=== PATIENT | female | born 1985 | race Caucasian/White ===

== ENCOUNTER 2023-04-29 12:27 | Inpatient (IN) | payer OTHER ==
--- NOTE | 2023-04-29 13:03 | ED ---
Back Pain HPI - General Source: patient, RN notes reviewed Mode of arrival: ambulatory Limitations: no limitations - History of Present Illness Complaint: back pain <Breann Odonnell - Last Filed: 04/29/23 13:00> - History of Present Illness Complaint: back pain <Ramila Krause - Last Filed: 04/29/23 16:23> - General Source: RN notes reviewed, old records reviewed Mode of arrival: ambulatory Limitations: no limitations <Dipak Rubalcava - Last Filed: 05/01/23 18:15> - General Chief Complaint: Back Pain/Injury Stated Complaint: mouth pain and back/stomach right pain Time Seen by Provider: 04/29/23 13:00 - History of Present Illness Initial Comments: This is a 38 year old female who presents to the emergency department for right flank pain and dental pain. Reports 1.5 weeks of right flank pain. States that she has a hx of UTIs and kidney stones and believes that the pain feels the same. Also reports left sided dental pain and swelling beginning 2 days ago. She has been taking Ibuprofen which is helpful. (Breann Odonnell) The patient is a 38-year-old female with a history of diabetes and open heart surgery which she had originally been on Coumadin for presents emergency room with complaints of pain and swelling to the left upper incisor. She states it started a few days ago and is getting progressively worse. The patient also states she has bilateral flank pain that is worse on the right. She has discolored urine and very foul-smelling urine. She has a history urinary tract infections, kidney infections and kidney stones. Patient denies any fever. She denies any vomiting. Of note she patient states she has been off her diabetes medication which includes 4 men and an unknown diabetic medication as well as Coumadin. She states she has been off these medications for 3 months. (Ramila Krause) This is a 38-year-old female to the emergency department for evaluation of severe abdominal pain. Originally came to the ER for evaluation today regarding tooth pain and tooth abscess but also noted to have flank pain. No fevers. Mild nausea no vomiting (Dipak Rubalcava) - Related Data Home Medications Medication Instructions Recorded Confirmed No Known Home Medications 04/29/23 04/29/23 Allergies Allergy/AdvReac Type Severity Reaction Status Date / Time No Known Allergies Allergy Verified 04/29/23 19:40 Review of Systems ROS Other: All systems not noted in ROS Statement are negative. <Breann Odonnell - Last Filed: 04/29/23 13:00> ROS Other: All systems not noted in ROS Statement are negative. <Ramila Krause - Last Filed: 04/29/23 16:23> ROS Other: All systems not noted in ROS Statement are negative. <Dipak Rubalcava - Last Filed: 05/01/23 18:15> ROS Statement: Those systems with pertinent positive or pertinent negative responses have been documented in the HPI. General Exam <Breann Odonnell - Last Filed: 04/29/23 13:00> Limitations: no limitations General appearance: alert, in no apparent distress Head exam: Present: atraumatic, normocephalic, normal inspection Eye exam: Present: normal appearance ENT exam: Present: other (Were old dental DKA throughout. Patient has a large 1 cm abscess that is well defined in the left upper apical gum.) Neck exam: Present: normal inspection Respiratory exam: Present: normal lung sounds bilaterally Cardiovascular Exam: Present: regular rate, normal rhythm GI/Abdominal exam: Present: soft, other (Bilateral flank pain no rash) Extremities exam: Present: full ROM, other (EHL intact bilaterally no hemo tympanum with steady gait) Back exam: Present: full ROM, CVA tenderness (R), CVA tenderness (L) Neurological exam: Present: alert, oriented X3, CN II-XII intact Psychiatric exam: Present: normal affect, normal mood Skin exam: Present: warm, dry <Ramila Krause - Last Filed: 04/29/23 16:23> General appearance: alert, in no apparent distress Head exam: Present: atraumatic, normocephalic, normal inspection Eye exam: Present: normal appearance, PERRL, EOMI. Absent: scleral icterus, conjunctival injection, periorbital swelling ENT exam: Present: normal exam, mucous membranes moist Neck exam: Present: normal inspection. Absent: tenderness, meningismus, lym phadenopathy Respiratory exam: Present: normal lung sounds bilaterally. Absent: respiratory distress, wheezes, rales, rhonchi, stridor Cardiovascular Exam: Present: regular rate, normal rhythm, normal heart sounds. Absent: systolic murmur, diastolic murmur, rubs, gallop, clicks GI/Abdominal exam: Present: soft, normal bowel sounds. Absent: distended, tenderness, guarding, rebound, rigid Extremities exam: Present: normal inspection, full ROM, normal capillary refill. Absent: tenderness, pedal edema, joint swelling, calf tenderness Back exam: Present: normal inspection Neurological exam: Present: alert, oriented X3, CN II-XII intact Psychiatric exam: Present: normal affect, normal mood Skin exam: Present: warm, dry, intact, normal color. Absent: rash <Dipak Rubalcava - Last Filed: 05/01/23 18:15> - General Exam Comments Initial Comments: Visual Physical Exam Vital signs reviewed General: Well-appearing, nontoxic, no acute distress. Head: Normocephalic, atraumatic Eyes: PERRLA, EOMI ENT: Airway patent Chest: Nonlabored breathing Skin: No visual rash, normal skin tone Neuro: Alert and oriented 3 Musculoskeletal: No gross abnormalities I performed a quick note portion of this chart signed Breann Odonnell PA-C (Breann Odonnell) Course <Ramila Krause - Last Filed: 04/29/23 16:23> <Dipak Rubalcava - Last Filed: 05/01/23 18:15> Vital Signs 04/29/23 04/29/23 13:00 20:07 Temperature 97.7 F Pulse Rate 100 82 Respiratory 20 16 Rate Blood Pressure 141/94 138/92 O2 Sat by Pulse 98 97 Oximetry - Reevaluation(s) Reevaluation #1: 04/29/23 16:26 Patient care will be transferred to Dr. Rubalcava at this time. Patient will not let me drained the dental abscess. She was started on Unasyn to cover for the dental abscess as well as the suspected pyelonephritis. (Ramila Krause) Reevaluation #2: 04/29/23 22:23 Patient symptoms are dramatically improved (Dipak Rubalcava) Reevaluation #3: 04/29/23 22:23 Patient informed of results (Dipak Rubalcava) Reevaluation #4: 04/29/23 22:23 Was pt. sent in by a medical professional or institution (KANDY Stevenson, MANAGER OF TRANSPORTATION, urgent care, hospital, or [place]...) When possible be specific @ -no Did you speak to anyone other than the patient for history (EMS, parent, family, police, friend...)? What history was obtained from this source @ -no Did you review nursing and triage notes (agree or disagree)? Why? @ -agree Are old charts reviewed (outside hosp., previous admission, EMS record, old EKG, old radiological studies, urgent care reports/EKG's, [place] [facility] [place] records)? Report findings @ -yes Differential Diagnosis (chest pain, altered mental status, abdominal pain women, abdominal pain men, vaginal bleeding, weakness, fever, dyspnea, syncope, headac he, dizziness, GI bleed, back pain, seizure, CVA, palpatations, mental health, musculoskeletal)? @ -prior EKG interpreted by me (3pts min.). @ -no X-rays interpreted by me (1pt min.). @ -no CT interpreted by me (1pt min.). @ -yes U/S interpreted by me (1pt. min.). @ -yes What testing was considered but not performed or refused? (CT, X-rays, U/S, labs)? Why? @ -none What meds were considered but not given or refused? Why? @ -none Did you discuss the management of the patient with other professionals (professionals i.e. KANDY Stevenson, MANAGER OF TRANSPORTATION, lab, RT, psych nurse, medical social consultant, natural gas trader, teacher, chief commercial officer, mattress spring encaser)? Give summary @ -no Was smoking cessation discussed for >3mins.? @ -no Was critical care preformed (if so, how long)? @ -no Were there social determinants of health that impacted care today? How? (Homelessness, low income, unemployed, alcoholism, drug addiction, trans portation, low edu. Level, literacy, decrease access to med. care, group home, rehab)? @ -none Was there de-escalation of care discussed even if they declined (Discuss DNR or withdrawal of care, Hospice)? DNR status @ -no What co-morbidities impacted this encounter? (DM, HTN, Smoking, COPD, CAD, Cancer, CVA, ARF, Chemo, Hep., AIDS, mental health diagnosis, sleep apnea, morbid obesity)? @ -none Was patient admitted / discharged? Hospital course, mention meds given and route, prescriptions, significant lab abnormalities, going to OR and other pertinent info. @ - 38 female to the emergency department with kidney stone and staghorn calculi. Patient will be admitted for urology consult and treatment, IV antibiotics Admitted Undiagnosed new problem with uncertain prognosis? @ -no Drug Therapy requiring intensive monitoring for toxicity (Heparin, Nitro, Insulin, Cardizem)? @ -no Were any procedures done? @ -no Diagnosis/symptom? @ -Staghorn calculi, UTI, tooth abscess Acute, or Chronic, or Acute on Chronic? @ -Acute Uncomplicated (without systemic symptoms) or Complicated (systemic symptoms)? @ -Complicated Side effects of treatment? @ -no Exacerbation, Progression, or Severe Exacerbation? @ -exacerbation Poses a threat to life or bodily function? How? (Chest pain, USA, DE, pneumonia, PE, COPD, DKA, ARF, appy, cholecystitis, CVA, Diverticulitis, Homicidal, Suicidal, threat to staff... and all critical care pts) @ -yes kidney stone with infection (Dipak Rubalcava) Reevaluation #5: 04/29/23 22:24 Differential Abdominal Pain Women: Appendicitis, Cholecystitis, diverticulosis, ischemic bowel, pancreatitis, hepat itis, UTI, gastroenteritis, AAA, incarcerated hernia, bowel obstruction, constipation, inflammatory bowel, hepatitis, peptic ulcer disease, splenic infarction, perforated viscus, vulvitis, ovarian torsion, PID, kidney stone, placenta abruption, this is not meant to be an all-inclusive list (Dipak Rubalcava) - Consultations Consultation #1: Spoke with sound who agrees to admit this patient (Dipak Rubalcava) Consultation #2: With urology patient (Dipak Rubalcava) Medical Decision Making - Lab Data Result diagrams: 04/29/23 14:11 04/29/23 14:11 <Ramila Krause - Last Filed: 04/29/23 16:23> - Lab Data Result diagrams: 05/01/23 05:41 05/01/23 05:41 - Radiology Data Radiology results: report reviewed (CT of the abdomen and pelvis positive for staghorn calculi, ultrasound gallbladder negative for acute disease), image reviewed <KhadarFrannati Barlow - Last Filed: 05/01/23 18:15> - Medical Decision Making Was pt. sent in by a medical professional or institution (KADNY Stevenson, MANAGER OF TRANSPORTATION, urgent care, hospital, or [place]...) When possible be specific @ -[No] Did you speak to anyone other than the patient for history (EMS, parent, family, police, friend...)? What history was obtained from this source @ -[No] Did you review nursing and triage notes (agree or disagree)? Why? @ -[I reviewed and agree with nursing and triage notes] Were old charts reviewed (outside hosp., previous admission, EMS record, old EKG, old radiological studies, urgent care reports/EKG's, [place] records)? Report findings @ -[No old charts were reviewed] Differential Diagnosis (chest pain, altered mental status, abdominal pain women, abdominal pain men, vaginal bleeding, weakness, fever, dyspnea, syncope, headache, dizziness, GI bleed, back pain, seizure, CVA, palpatations, mental health, musculoskeletal)? @ -Dental abscess, dental decay, muscle strain, urinary tract infection, pyelonephritis, kidney stone EKG interpreted by me (3pts min.). @ -[As above] X-rays interpreted by me (1pt min.). @ -[None done] CT interpreted by me (1pt min.). @ -CT is still pending no interpretation by me. U/S interpreted by me (1pt. min.). @ -[None done] What testing was considered but not performed or refused? (CT, X-rays, U/S, labs)? Why? @ -[None] What meds were considered but not given or refused? Why? @ -[None] Did you discuss the management of the patient with other professionals (professionals i.e. KANDY Stevenson, MANAGER OF TRANSPORTATION, lab, RT, psych nurse, medical social consultant, natural gas trader, teacher, chief commercial officer, mattress spring encaser)? Give summary @ -Discussed patient's symptoms are And evaluation with attending ED physician Dr. Rubalcava today. Patient care will be transferred to him for follow-up of the CT and further disposition Was smoking cessation discussed for >3mins.? @ -[No] Was critical care preformed (if so, how long)? @ -[No] Were there social determinants of health that impacted care today? How? (Homel essness, low income, unemployed, alcoholism, drug addiction, transportation, low edu. Level, literacy, decrease access to med. care, group home, rehab)? @ -[No] Was there de-escalation of care discussed even if they declined (Discuss DNR or withdrawal of care, Hospice)? DNR status @ -[No] What co-morbidities impacted this encounter? (DM, HTN, Smoking, COPD, CAD, Cancer, CVA, ARF, Chemo, Hep., AIDS, mental health diagnosis, sleep apnea, morbid obesity)? @ -[None] Was patient admitted / discharged? Hospital course, mention meds given and route, prescriptions, significant lab abnormalities, going to OR and other pertinent info. @ - Patient care transferred to Dr. Rubalcava for disposition and admission plan Undiagnosed new problem with uncertain prognosis? @ -[No] Drug Therapy requiring intensive monitoring for toxicity (Heparin, Nitro, Insulin, Cardizem)? @ -[No] Were any procedures done? @ -[No] Diagnosis/symptom? @ -[Dental abscess, flank pain, pyelonephritis. hyperglycemia ] Acute, or Chronic, or Acute on Chronic? @ -[Acute ] Uncomplicated (without systemic symptoms) or Complicated (systemic symptoms)? @ -[Uncomplicated Side effects of treatment? @ -[No] Exacerbation, Progression, or Severe Exacerbation? @ -[No] Poses a threat to life or bodily function? How? (Chest pain, USA, DE, pneumonia, PE, COPD, DKA, ARF, appy, cholecystitis, CVA, Diverticulitis, Homicidal, Suicidal, threat to staff... and all critical care pts) @ -[No] (Ramila Krause) 38 female to the emergency department with kidney stone and staghorn calculi. Patient [place] for urology consult (Dipak Rubalcava) - Lab Data Lab Results 04/29/23 04/29/23 04/29/23 Range/Units 13:01 14:11 14:11 WBC 12.4 H (3.8-10.6) k/uL RBC 5.36 (3.80-5.40) m/uL Hgb 15.8 (11.4-16.0) gm/dL Hct 46.8 H (34.0-46.0) % MCV 87.3 (80.0-100.0) fL MCH 29.5 (25.0-35.0) pg MCHC 33.8 (31.0-37.0) g/dL RDW 14.4 (11.5-15.5) % Plt Count 271 (150-450) k/uL MPV 8.2 Neutrophils % 66 % Lymphocytes % 20 % Monocytes % 8 % Eosinophils % 3 % Basophils % 1 % Neutrophils # 8.2 H (1.3-7.7) k/uL Lymphocytes # 2.5 (1.0-4.8) k/uL Monocytes # 1.0 (0-1.0) k/uL Eosinophils # 0.4 (0-0.7) k/uL Basophils # 0.1 (0-0.2) k/uL PT (10.0-12.5) sec INR (<1.2) Sodium 138 (137-145) mmol/L Potassium 4.0 (3.5-5.1) mmol/L Chloride 104 (98-107) mmol/L Carbon Dioxide 20 L (22-30) mmol/L Anion Gap 14 mmol/L BUN 19 H (7-17) mg/dL Creatinine 0.46 L (0.52-1.04) mg/dL Est GFR (CKD-EPI)AfAm >90 (>60 ml/min/1.73 sqM) Est GFR (CKD-EPI)NonAf >90 (>60 ml/min/1.73 sqM) Glucose 323 H (74-99) mg/dL Calcium 9.7 (8.4-10.2) mg/dL Total Bilirubin 0.6 (0.2-1.3) mg/dL AST 40 H (14-36) U/L ALT 67 H (4-34) U/L Alkaline Phosphatase 139 H (38-126) U/L Total Protein 8.0 (6.3-8.2) g/dL Albumin 3.9 (3.5-5.0) g/dL HCG, Quant <2.4 mIU/mL Urine Color Yellow Urine Appearance Cloudy H (Clear) Urine pH 6.0 (5.0-8.0) Ur Specific [place] 1.015 (1.001-1.035) Urine Protein 2+ (Negative) Urine Glucose (UA) 4+ (Negative) Urine Ketones 1+ (Negative) Urine Blood Moderate (Negative) Urine Nitrite Negative (Negative) Urine Bilirubin Negative (Negative) Urine Urobilinogen 2.0 (<2.0) mg/dL Ur Leukocyte Esterase Large (Negative) Urine RBC 91 H (0-5) /hpf Urine WBC 167 H (0-5) /hpf Ur Squamous Epith Cells 4 (0-4) /hpf Urine Bacteria Many H (None) /hpf Hyaline Casts 3 H (0-2) /lpf Urine Mucus Occasional H (None) /hpf 04/29/23 Range/Units 18:27 WBC (3.8-10.6) k/uL RBC (3.80-5.40) m/uL Hgb (11.4-16.0) gm/dL Hct (34.0-46.0) % MCV (80.0-100.0) fL MCH (25.0-35.0) pg MCHC (31.0-37.0) g/dL RDW (11.5-15.5) % Plt Count (150-450) k/uL MPV Neutrophils % % Lymphocytes % % Monocytes % % Eosinophils % % Basophils % % Neutrophils # (1.3-7.7) k/uL Lymphocytes # (1.0-4.8) k/uL Monocytes # (0-1.0) k/uL Eosinophils # (0-0.7) k/uL Basophils # (0-0.2) k/uL PT 11.2 (10.0-12.5) sec INR 1.0 (<1.2) Sodium (137-145) mmol/L Potassium (3.5-5.1) mmol/L Chloride (98-107) mmol/L Carbon Dioxide (22-30) mmol/L Anion Gap mmol/L BUN (7-17) mg/dL Creatinine (0.52-1.04) mg/dL Est GFR (CKD-EPI)AfAm (>60 ml/min/1.73 sqM) Est GFR (CKD-EPI)NonAf (>60 ml/min/1.73 sqM) Glucose (74-99) mg/dL Calcium (8.4-10.2) mg/dL Total Bilirubin (0.2-1.3) mg/dL AST (14-36) U/L ALT (4-34) U/L Alkaline Phosphatase (38-126) U/L Total Protein (6.3-8.2) g/dL Albumin (3.5-5.0) g/dL HCG, Quant mIU/mL Urine Color Urine Appearance (Clear) Urine pH (5.0-8.0) Ur Specific [place] (1.001-1.035) Urine Protein (Negative) Urine Glucose (UA) (Negative) Urine Ketones (Negative) Urine Blood (Negative) Urine Nitrite (Negative) Urine Bilirubin (Negative) Urine Urobilinogen (<2.0) mg/dL Ur Leukocyte Esterase (Negative) Urine RBC (0-5) /hpf Urine WBC (0-5) /hpf Ur Squamous Epith Cells (0-4) /hpf Urine Bacteria (None) /hpf Hyaline Casts (0-2) /lpf Urine Mucus (None) /hpf Disposition <Breann Odonnell - Last Filed: 04/29/23 13:00> <Ramila Krause - Last Filed: 04/29/23 16:23> Is patient prescribed a controlled substance at d/c from ED?: No Time of Disposition: 19:00 <Dipak Rubalcava - Last Filed: 05/01/23 18:15> Clinical Impression: Dental abscess, Flank pain, Pyelonephritis, Hyperglycemia Disposition: ADMITTED IP TO THIS HOSP Condition: Fair
[2023-04-29 14:40] LABS: Bacteria,Urine Many /hpf; Hyaline Casts,Urine 3 /lpf (0-2); Mucus,Urine Occasional /hpf; RBC,Urine 91 /hpf (0-5); Squamous Epithelial Cell,Urine 4 /hpf (0-4); WBC,Urine 167 /hpf (0-5)
[2023-04-29 14:41] LABS: Appearance,Urine Cloudy (Clear); Bilirubin,Urine Negative (Negative); Blood,Urine Moderate (Negative); Color,Urine Yellow; Glucose,Urine (UA) 4+ (Negative); Ketones,Urine 1+ (Negative); Leukocyte Esterase,Urine Large (Negative); Nitrite,Urine Negative (Negative); Protein,Urine 2+ (Negative); Specific Gravity,Urine 1.015 (1.001-1.035)
[2023-04-29 15:02] LABS: Basophils # (A) 0.1 k/uL (0-0.2); Basophils % (A) 1 %; Eosinophils # (A) 0.4 k/uL (0-0.7); Eosinophils % (A) 3 %; HCT 46.8 % (34.0-46.0); HGB 15.8 gm/dL (11.4-16.0); Lymphocytes # (A) 2.5 k/uL (1.0-4.8); Lymphocytes % (A) 20 %; MCH 29.5 pg (25.0-35.0); MCHC 33.8 g/dL (31.0-37.0); MCV 87.3 fL (80.0-100.0); Mean Platelet Volume 8.2; Monocytes % (A) 8 %; Neutrophils # (A) 8.2 k/uL (1.3-7.7); Neutrophils % (A) 66 %; Platelet Count 271 k/uL (150-450); RBC 5.36 m/uL (3.80-5.40); RDW 14.4 % (11.5-15.5); WBC 12.4 k/uL (3.8-10.6)
[2023-04-29 15:32] LABS: ALT 67 U/L (4-34); AST 40 U/L (14-36); African American GFR (CKD) >90 (>60 ml/min/1.73 sqM); Albumin 3.9 g/dL (3.5-5.0); Alkaline Phosphatase 139 U/L (38-126); Anion Gap 14 mmol/L; Blood Urea Nitrogen 19 mg/dL (7-17); Calcium 9.7 mg/dL (8.4-10.2); Carbon Dioxide 20 mmol/L (22-30); Chloride 104 mmol/L (98-107); Glucose 323 mg/dL (74-99); Non-African American GFR(CKD) >90 (>60 ml/min/1.73 sqM); Sodium 138 mmol/L (137-145); Total Bilirubin 0.6 mg/dL (0.2-1.3)
[2023-04-29] MEDS ORDERED: AMPICILLIN-SULBACTAM 3 GM in SODIUM CHLORIDE 0.9% 100 ML IVPB STA (15:44)
[2023-04-29] MEDS ORDERED: ONDANSETRON 4 MG/2 ML VIAL IVP STA (15:46)
[2023-04-29] MEDS ORDERED: KETOROLAC 15 MG/ML 1 ML VIAL IVP STA (15:46)
[2023-04-29 15:48] LABS: HCG,Quantitative Serum <2.4 mIU/mL
[2023-04-29] MEDS ORDERED: MORPHINE SULFATE 4 MG/ML SYRINGE IVP STA (16:23)
--- NOTE | 2023-04-29 17:20 | CT ---
EXAMINATION TYPE: CT renal stones wo con CT DLP: 942.1 mGycm, Automated exposure control for dose reduction was used. DATE OF EXAM: 04/29/2023 5:04 PM COMPARISON: None. CLINICAL INDICATION:Female, 38 years old with history of flank pain; Bilateral flank pain TECHNIQUE: Axial CT of the ;CT renal stones wo con;Sagittal and coronal reformats were created on a separate workstation. Contrast used: mL of , (none if empty) Oral contrast used: (none if empty) FINDINGS: LOWER CHEST: Sternotomy changes. Cardiac conduction leads multiple metallic clips are present particu larly the mediastinum. ABDOMEN LIVER: Unremarkable GALLBLADDER AND BILE DUCTS: Layering increased densities within the lumen consistent with gallstones are present. PANCREAS: Unremarkable. SPLEEN: Suspected splenic cyst anteriorly measuring up to 19 mm. ADRENAL GLANDS: Unremarkable. KIDNEYS AND URETERS: 1. Large left renal calculus measuring 12 x 8 mm. No evidence for obstructive uropathy. 2. 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 Measuring u p to 21 x 12 mm with gas near the calyces.. Mild Fat stranding changes around the right kidney. PELVIS BLADDER: Unremarkable REPRODUCTIVE: Unremarkable. ABDOMEN & PELVIS STOMACH AND BOWEL: No evidence of bowel obstruction. PERITONEUM/RETROPERITONEUM: No evidence of pneumoperitoneum or free fluid. VASCULATURE: No evidence of aortic aneurysm. MUSCULOSKELETAL: No acute osseous abnormalities LYMPH NODES: No gross evidence for lymphadenopathy. SOFT TISSUE/ABDOMINAL WALL: Unremarkable IMPRESSION: 1. Staghorn right calculus with gas within the renal calyces. 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 Clinically correlate for pyelonephritis. 2. Left renal calculus is nonobstructing measuring up to 12 mm. 3. Cholelithiasis.
--- NOTE | 2023-04-29 18:35 | US ---
EXAMINATION TYPE: US gallbladder DATE OF EXAM: 04/29/2023 COMPARISON: CT: Today CLINICAL INDICATION: Female, 38 years old with history of pain; RUQ pain TECHNIQUE: Multiple sonographic images of the right upper quadrant are obtained. FINDINGS: EXAM MEASUREMENTS: Liver Length: 13.7 cm Gallbladder Wall: 0.21 cm CBD: 0.50 cm Right Kidney: 12.7 x 5.6 x 5.5 cm Pancreas: Parts seen appear wnl Liver: Heterogeneous and difficult to penetrate Gallbladder: Multiple gallstones visualized. Pt had just eaten, so contracted GB. Evidence for sonographic Yousif's sign: No CBD: wnl Right Kidney: Mild hydronephrosis seen. There is an echogenic focus with posterior shadowing seen in the inferior pole measuring 2.6 x 1.5 x 1.1cm IMPRESSION: 1. Cholelithiasis. 2. Mild right hydronephrosis. 3. Nonobstructing right renal calculus. 4. Heterogenous liver correlate with serum markers for hepatocellular disease.
[2023-04-29 19:03] LABS: Prothrombin Time 11.2 sec (10.0-12.5)
[2023-04-29] MEDS ORDERED: ONDANSETRON 4 MG/2 ML VIAL IVP PRN (19:07)
[2023-04-29] MEDS ORDERED: NALOXONE 0.4 MG/ML 1 ML VIAL IV PRN (19:07)
[2023-04-29] MEDS: SODIUM CHLORIDE 0.9% 1,000 ML IV SCH (19:35)
[2023-04-29] MEDS: MORPHINE SULFATE 4 MG/ML SYRINGE IV PRN ×2 (19:35→23:02)
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
[2023-04-30] MEDS ORDERED: INSULIN DETEMIR (LEVEMIR) 100 UNIT/ML SYR SQ SCH (01:30)
[2023-04-30 01:39] LABS: Glucose,Whole Blood 355 mg/dL (70-110)
[2023-04-30] MEDS: metroNIDAZOLE-NS PMX 500 MG in SALINE 1 100ML.BAG IVPB SCH ×3 (01:45→16:00)
[2023-04-30] MEDS: SODIUM CHLORIDE 0.9% 1,000 ML IV SCH ×2 (01:45→19:33)
[2023-04-30 05:35] LABS: Glucose,Whole Blood 257 mg/dL (70-110)
[2023-04-30] MEDS: MORPHINE SULFATE 4 MG/ML SYRINGE IV PRN ×5 (05:41→21:24)
[2023-04-30] MEDS: INSULIN ASPART (NovoLOG) 100 UNIT/ML VIAL SQ SCH ×4 (06:36→21:25)
--- NOTE | 2023-04-30 07:58 | P.GSCN ---
History of Present Illness Consult date: 04/30/23 History of present illness: 38 yo female cassie came to the hospital with left sided abdominal pain. the patient was a history of urolithiasis primarily treated in [place] previously SHe had a ct scan identifying bilateral renal stones, 12x 8 left and greater than 2 cm on the right. She also appears to have emphysematous pyelonephritis on the right. There is not any hydronephrosis. Her urine is infected. Her wbc is 12k She is afebrile. Her previous stones she has passed. She states that she has had recurrent urine infections. She has never had any surgery for stones. He is not having any pain at present. Computed tomography scan shows a partial staghorn on the right in the lower pole. She has a 12 x 8 cm don't in the left lower pole. The infundibulum in the left lower pole looks long. She looks like she might have had previous scarring of the left lower pole. Review of Systems All systems: negative - Constitutional Denies fever, Denies weight loss - EENT Eyes: denies blurred vision Ears, nose, mouth and throat: Denies dysphagia - Cardiovascular Denies chest pain, Denies shortness of breath - Respiratory Denies cough, Denies 7 - Gastrointestinal Reports as per HPI - Genitourinary Genitourinary: Denies dysuria, Denies hematuria - Integumentary Denies rash, Denies unusual bruising - Neurological Denies headaches, Denies syncope - Hematologic/Lymphatic Denies easy bleeding, Denies easy bruising Past Medical History Past Medical History: Diabetes Mellitus History of Any Multi-Drug Resistant Organisms: None Reported Past Surgical History: Section, Pacemaker Additional Past Surgical History / Comment(s): heart valave replacement Past Anesthesia/Blood Transfusion Reactions: No Reported Reaction Type of Cardiac Device: Unknown Device Placement Date:: unkown Smoking Status: Current every day smoker Medications and Allergies Home Medications Medication Instructions Recorded Confirmed Type No Known Home Medications 04/29/23 04/29/23 History Allergies Allergy/AdvReac Type Severity Reaction Status Date / Time No Known Allergies Allergy Verified 04/29/23 19:40 Surgical - Exam Vital Signs Temp Pulse Resp BP Pulse Ox 97.7 F 100 20 141/94 98 04/29/23 13:00 04/29/23 13:00 04/29/23 13:00 04/29/23 13:00 04/29/23 13:00 - General well developed, well nourished, no distress - Eyes normal ocular movement, no icteric - ENT no hearing loss, no congestion - Neck no masses, trachea midline - Respiratory normal respiratory effort, clear to auscultation - Abdomen Abdomen: soft, non tender, no guarding, no rigid, no rebound - Integumentary no rash, no abnormal pigmentation - Neurologic no disoriented, no combative - Psychiatric oriented to time, oriented to person, oriented to place, speech is normal, memory intact Results - Labs 04/29/23 14:11 04/29/23 14:11 Abnormal Lab Results - Last 24 Hours (Table) 04/29/23 04/29/23 04/29/23 Range/Units 13:01 14:11 14:11 WBC 12.4 H (3.8-10.6) k/uL Hct 46.8 H (34.0-46.0) % Neutrophils # 8.2 H (1.3-7.7) k/uL Carbon Dioxide 20 L (22-30) mmol/L BUN 19 H (7-17) mg/dL Creatinine 0.46 L (0.52-1.04) mg/dL Glucose 323 H (74-99) mg/dL POC Glucose (mg/dL) (70-110) mg/dL AST 40 H (14-36) U/L ALT 67 H (4-34) U/L Alkaline Phosphatase 139 H (38-126) U/L Urine Appearance Cloudy H (Clear) Urine RBC 91 H (0-5) /hpf Urine WBC 167 H (0-5) /hpf Urine Bacteria Many H (None) /hpf Hyaline Casts 3 H (0-2) /lpf Urine Mucus Occasional H (None) /hpf 04/30/23 04/30/23 Range/Units 01:35 05:31 WBC (3.8-10.6) k/uL Hct (34.0-46.0) % Neutrophils # (1.3-7.7) k/uL Carbon Dioxide (22-30) mmol/L BUN (7-17) mg/dL Creatinine (0.52-1.04) mg/dL Glucose (74-99) mg/dL POC Glucose (mg/dL) 355 H 257 H (70-110) mg/dL AST (14-36) U/L ALT (4-34) U/L Alkaline Phosphatase (38-126) U/L Urine Appearance (Clear) Urine RBC (0-5) /hpf Urine WBC (0-5) /hpf Urine Bacteria (None) /hpf Hyaline Casts (0-2) /lpf Urine Mucus (None) /hpf Diabetes panel 04/29/23 Range/Units 14:11 Sodium 138 (137-145) mmol/L Potassium 4.0 (3.5-5.1) mmol/L Chloride 104 (98-107) mmol/L Carbon Dioxide 20 L (22-30) mmol/L BUN 19 H (7-17) mg/dL Creatinine 0.46 L (0.52-1.04) mg/dL Glucose 323 H (74-99) mg/dL Calcium 9.7 (8.4-10.2) mg/dL AST 40 H (14-36) U/L ALT 67 H (4-34) U/L Alkaline Phosphatase 139 H (38-126) U/L Total Protein 8.0 (6.3-8.2) g/dL Albumin 3.9 (3.5-5.0) g/dL Calcium panel 04/29/23 Range/Units 14:11 Calcium 9.7 (8.4-10.2) mg/dL Albumin 3.9 (3.5-5.0) g/dL Pituitary panel 04/29/23 Range/Units 14:11 Sodium 138 (137-145) mmol/L Potassium 4.0 (3.5-5.1) mmol/L Chloride 104 (98-107) mmol/L Carbon Dioxide 20 L (22-30) mmol/L BUN 19 H (7-17) mg/dL Creatinine 0.46 L (0.52-1.04) mg/dL Glucose 323 H (74-99) mg/dL Calcium 9.7 (8.4-10.2) mg/dL Adrenal panel 04/29/23 Range/Units 14:11 Sodium 138 (137-145) mmol/L Potassium 4.0 (3.5-5.1) mmol/L Chloride 104 (98-107) mmol/L Carbon Dioxide 20 L (22-30) mmol/L BUN 19 H (7-17) mg/dL Creatinine 0.46 L (0.52-1.04) mg/dL Glucose 323 H (74-99) mg/dL Calcium 9.7 (8.4-10.2) mg/dL Total Bilirubin 0.6 (0.2-1.3) mg/dL AST 40 H (14-36) U/L ALT 67 H (4-34) U/L Alkaline Phosphatase 139 H (38-126) U/L Total Protein 8.0 (6.3-8.2) g/dL Albumin 3.9 (3.5-5.0) g/dL - Imaging CT scan - abdomen: report reviewed, image reviewed CT scan - pelvis: report reviewed, image reviewed Assessment and Plan Assessment: Impression: Patient has pyelonephritis right. Bilateral renal stones. Diabetes. Recommendations: The pyelonephritis should be treated. The question is whether the stones are infected. I have discussed with the patient treatment options. Left side would be treated with either ureteroscopy or shockwave lithotripsy. Upon re-reviewing the computed tomography scan I think ureteroscopy be more appropriate. Right side would need a percutaneous nephrostolithotomy. The patient should be seen in the office in follow-up.
[2023-04-30] MEDS ORDERED: NICOTINE 21MG/24HR PATCH TRANSDERM PRN (10:54)
[2023-04-30] MEDS ORDERED: NICOTINE GUM (POLACRILEX) 2 MG GUM BUCCAL PRN (10:54)
[2023-04-30] MEDS: PANTOPRAZOLE 40 MG/10 ML VIAL IV SCH (10:57)
[2023-04-30 11:06] LABS: Basophils # (A) 0.07 X 10*3/uL (0.00-0.10); Basophils % (A) 0.8 %; Eosinophils # (A) 0.44 X 10*3/uL (0.04-0.35); Eosinophils % (A) 5.2 %; HCT 40.2 % (37.2-46.3); HGB 13.4 d/dL (12.0-15.0); Lymphocytes # (A) 2.19 X 10*3/uL (0.90-5.00); Lymphocytes % (A) 25.8 %; MCH 28.5 pg (27.0-32.0); MCHC 33.3 d/dL (32.0-37.0); MCV 85.5 FL (80.0-97.0); Mean Platelet Volume 11.5 FL (9.5-12.2); Monocytes # (A) 1.26 X 10*3/uL (0.20-1.00); Monocytes % (A) 14.9 %; NRBC Per 100 WBC 0 X 10*3/uL (0.00-0.01); Neutrophils % (A) 53.1 %; Platelet Count 247 X 10*3/uL (140-440); RDW 14.2 % (11.5-14.5); WBC 8.48 X 10*3/uL (4.50-10.00)
[2023-04-30 11:25] LABS: Glucose,Whole Blood 186 mg/dL (70-110)
[2023-04-30 11:29] LABS: Magnesium 1.7 mg/dL (1.5-2.4); Phosphorus 3.8 mg/dL (2.4-5.1)
[2023-04-30 12:02] LABS: ALT 54 U/L (8-44); AST 36 U/L (13-35); Albumin 3.2 d/dL (3.8-4.9); Alkaline Phosphatase 105 U/L (41-126); BUN/Creat Ratio 26.17 Ratio (12.00-20.00); Blood Urea Nitrogen 15.7 mg/dL (9.0-27.0); Calcium 8.6 mg/dL (8.7-10.3); Carbon Dioxide 29.3 mmol/L (21.6-31.8); Chloride 106 mmol/L (96-109); Globulin 3.2 d/dL (1.6-3.3); Glucose 212 mg/dL (70-110); Potassium 4.2 mmol/L (3.5-5.5); Sodium 137 mmol/L (135-145); Total Bilirubin 0.2 mg/dL (0.3-1.2); Total Protein 6.4 d/dL (6.2-8.2)
[2023-04-30] MEDS: AMPICILLIN-SULBACTAM 3 GM in SODIUM CHLORIDE 0.9% 100 ML IVPB SCH ×3 (13:01→23:38)
[2023-04-30 16:22] LABS: Glucose,Whole Blood 258 mg/dL (70-110)
[2023-04-30] MEDS ORDERED: KETOROLAC 15 MG/ML 1 ML VIAL IVP PRN (19:35)
[2023-04-30] MEDS ORDERED: ACETAMINOPHEN TAB 325 MG TAB PO PRN (19:36)
--- NOTE | 2023-04-30 19:46 | P.PN ---
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 In the emergency room she underwent an extensive evaluation. Her initial vital signs were remarkable for a pulse of 100 but otherwise within normal limits. Initial laboratory analysis was remarkable for white blood cell count of 12.4, AST 40, ALT 67 and glucose of 323. CT abdomen and pelvis showed large left renal calculi with no evidence of obstructive uropathy, right kidney with emphysematous pyelitis and staghorn calculi. Gallbladder ultrasound demonstrated cholelithiasis and mild right hydronephrosis with heterogeneous liver. In the ER she was started on IV antibiotics and IV fluids. Arrangements were made for admission. She was seen by urology who recommended continued IV antibiotics and outpatient follow-up for uteroscopy versus shock-wave lithotripsy. Patient seen and examined at bedside. She is having a slight headache. She continues to have some jaw pain. She states that she had her valve replaced in [place] after having an infection related to IV drug use. She adamantly denies any IV drug use at this time. She denies any nausea or vomiting but she is feeling somewhat achy all over. She reports that she is mostly on medications for diabetes as well as Coumadin for her heart valve, she states the valve is poor side and not mechanical. Vital signs reviewed General: nontoxic, no distress, appears at stated age Mouth: dental abscess left anterior mouth Cardiovascular: S1S2 reg with diastolic murmur, positive posterior tibial pulse bilateral, Lungs: Decreased breath sounds bilateral, no rhonchi, no rales , no accessory muscle use Abdominal: soft, nontender to palpation, no guarding, no appreciable organomegaly Ext: no gross muscle atrophy, no edema b/l lower extremities, no contractures Neuro: CN II-XI grossly intact, no focal neuro deficits Psych: Alert, oriented, appropriate affect Assessment/Plan: Emphysematous pyelitis, staghorn calculus right, nephrolithiasis left Dental abscess Sepsis - Unasyn 3 gram q 6 hours IVPB. Falgyl 500 mg q 8 hours IV - Consult ID - 0.9% NS at 130 cc/hr. - await urine culture - Urology recs appreciated: outpatient follow-up for ureteroscopy and cutaneous nephro lithotripsy -Sialagogues as needed, patient refused drainage of denal abscess in the ED - Await blood cultures - add toradol 15 mg IVP q 6 hours prn pain and norco 5/325 mg oral q 6 hours prn pain - morphine 4 mg q 4 hours prn breakthrough pain, monitor for sigsn of sedation DM II - increase levemir to 18 units at night - SSI - follow BS - check A1C Hx of tricuspid valve replacement PPM - Obtain records from surgery Imaging: As per HPI Data Review: Atrophy from today are CBC, basic metabolic profile, blood sugars, magnesium, and liver enzymes which are remarkable for calcium 8.6, magnesium 1.7, AST 36, ALT 54 DVT prophylaxis: Lovenox Anticipated discharge date: Pending Clinical Course Anticipated discharge place: Pending Clinical Course This dictation was prepared using [employer] voice recognition software. Though every attempt is made to correct errors during dictation some may still exist. Objective - Vital Signs Vital signs: Vital Signs Temp 98.2 F 04/30/23 19:17 Pulse 57 L 04/30/23 19:17 Resp 17 04/30/23 19:17 BP 121/76 04/30/23 19:17 Pulse Ox 98 04/30/23 19:17 FiO2 Intake & Output 04/30/23 04/30/23 05/01/23 06:59 18:59 06:59 Intake Total 236 Balance 236 Weight 90.718 kg Intake: Oral 236 Other: Voiding Method Toilet Toilet # Voids 2 4 - Labs CBC & Chem 7: 04/30/23 06:05 04/30/23 06:05 Labs: Abnormal Lab Results - Last 24 Hours (Table) 04/30/23 04/30/23 04/30/23 Range/Units 01:35 05:31 06:05 Monocytes # 1.26 H (0.20-1.00) X 10*3/uL Eosinophils # 0.44 H (0.04-0.35) X 10*3/uL Anion Gap (4.00-12.00) mmol/L BUN/Creatinine Ratio (12.00-20.00) Ratio Glucose (70-110) mg/dL POC Glucose (mg/dL) 355 H 257 H (70-110) mg/dL Calcium (8.7-10.3) mg/dL Total Bilirubin (0.3-1.2) mg/dL AST (13-35) U/L ALT (8-44) U/L Albumin (3.8-4.9) d/dL Albumin/Globulin Ratio (1.60-3.17) Ratio 04/30/23 04/30/23 04/30/23 Range/Units 06:05 11:24 16:20 Monocytes # (0.20-1.00) X 10*3/uL Eosinophils # (0.04-0.35) X 10*3/uL Anion Gap 1.70 L (4.00-12.00) mmol/L BUN/Creatinine Ratio 26.17 H (12.00-20.00) Ratio Glucose 212 H (70-110) mg/dL POC Glucose (mg/dL) 186 H 258 H (70-110) mg/dL Calcium 8.6 L (8.7-10.3) mg/dL Total Bilirubin 0.2 L (0.3-1.2) mg/dL AST 36 H (13-35) U/L ALT 54 H (8-44) U/L Albumin 3.2 L (3.8-4.9) d/dL Albumin/Globulin Ratio 1.00 L (1.60-3.17) Ratio Microbiology - Last 24 Hours (Table) 04/29/23 13:01 Urine Culture - Preliminary Urine,Voided Gram Neg Bacilli
[2023-04-30] MEDS: HYDROcodone/APAP 5-325MG 1 EACH TAB PO PRN (19:56)
[2023-04-30] MEDS: MAGNESIUM SULFATE-D5W PMX 1 GM in DEXTROSE/WATER 1 100ML.BAG IVPB SCH ×2 (19:56→21:25)
[2023-04-30 20:38] LABS: Glucose,Whole Blood 192 mg/dL (70-110)
[2023-04-30] MEDS: INSULIN DETEMIR (LEVEMIR) 100 UNIT/ML SYR SQ SCH (21:26)
--- NOTE | 2023-04-30 22:15 | P.CONS ---
History of Present Illness - Reason for Consult Consult date: 04/30/23 - History of Present Illness Patient is a 38-year-old female with a past medical history significant for diabetes mellitus patient presented to hospital with right flank pain and left upper jaw dental pain in this patient symptom has been getting worse for the last few days patient did have a history of recurrent UTIs and kidney stones and was thinking pain was more likely related to the kidney stone patient was describing the pain to be more of a 5-6 of 10 no radiation have this has not been vomiting no diarrhea did have some burning of urine patient also have a pain to the left lower jaw with infected tooth throbbing intensity is almost 10 out of 10 without radiation denies any difficulty swallowing with the symptoms the patient has been evaluated on presentation to the hospital the patient was afebrile and no fever has been recorded subsequently patient did have a white count of 12.4 with a left shift creatinine has been normal levels have been mildly elevated urine has been positive patient did have a renal CT staghorn right calculus with gas within the renal calyces findings probable emphysematous pyelitis patient has been evaluated by urology and operative options has been discussed with the patient patient is currently being treated with Rocephin infectious disease was consulted for further management of antibiotic therapy Past Medical History Past Medical History: Diabetes Mellitus History of Any Multi-Drug Resistant Organisms: None Reported Past Surgical History: Section, Pacemaker Additional Past Surgical History / Comment(s): heart valave replacement Past Anesthesia/Blood Transfusion Reactions: No Reported Reaction Type of Cardiac Device: Unknown Device Placement Date:: unkown Smoking Status: Current every day smoker Medications and Allergies Home Medications Medication Instructions Recorded Confirmed Type No Known Home Medications 04/29/23 04/29/23 History Allergies Allergy/AdvReac Type Severity Reaction Status Date / Time No Known Allergies Allergy Verified 04/29/23 19:40 Physical Exam Vitals: Vital Signs Temp Pulse Pulse Resp BP BP Pulse Ox 04/30/23 09:51 22 04/30/23 07:58 98 F 73 22 109/74 98 04/30/23 01:44 98.5 F 74 18 136/87 91 L 04/29/23 21:06 97.4 F L 80 20 129/87 97 04/29/23 20:07 82 16 138/92 97 04/29/23 13:00 97.7 F 100 20 141/94 98 Intake and Output 04/29/23 04/30/23 04/30/23 22:59 06:59 14:59 Intake Total 236 Balance 236 Intake: Oral 236 Other: Voiding Method Toilet Toilet # Voids 2 Weight 90.718 kg Results CBC & Chem 7: 05/01/23 05:41 05/01/23 05:41 Labs: Abnormal Lab Results - Last 24 Hours (Table) 04/29/23 04/29/23 04/29/23 Range/Units 13:01 14:11 14:11 WBC 12.4 H (3.8-10.6) k/uL Hct 46.8 H (34.0-46.0) % Neutrophils # 8.2 H (1.3-7.7) k/uL Carbon Dioxide 20 L (22-30) mmol/L BUN 19 H (7-17) mg/dL Creatinine 0.46 L (0.52-1.04) mg/dL Glucose 323 H (74-99) mg/dL POC Glucose (mg/dL) (70-110) mg/dL AST 40 H (14-36) U/L ALT 67 H (4-34) U/L Alkaline Phosphatase 139 H (38-126) U/L Urine Appearance Cloudy H (Clear) Urine RBC 91 H (0-5) /hpf Urine WBC 167 H (0-5) /hpf Urine Bacteria Many H (None) /hpf Hyaline Casts 3 H (0-2) /lpf Urine Mucus Occasional H (None) /hpf 04/30/23 04/30/23 Range/Units 01:35 05:31 WBC (3.8-10.6) k/uL Hct (34.0-46.0) % Neutrophils # (1.3-7.7) k/uL Carbon Dioxide (22-30) mmol/L BUN (7-17) mg/dL Creatinine (0.52-1.04) mg/dL Glucose (74-99) mg/dL POC Glucose (mg/dL) 355 H 257 H (70-110) mg/dL AST (14-36) U/L ALT (4-34) U/L Alkaline Phosphatase (38-126) U/L Urine Appearance (Clear) Urine RBC (0-5) /hpf Urine WBC (0-5) /hpf Urine Bacteria (None) /hpf Hyaline Casts (0-2) /lpf Urine Mucus (None) /hpf Assessment and Plan Plan: 1patient presented hospital with right flank pain with evidence of staghorn calculus and concerning for emphysematous pyelitis likely from gram-negative pathogen 2-patient also have left-sided jaw pain and evidence of infected tooth will need to cover for the polymicrobial nemesio usually associated with dental infection 3-discontinue Rocephin 4-start the patient on Unasyn 3 g every 6 hours We will follow on clinical condition and cultures to further adjust medication if needed Thank you for this consultation we will follow the patient along with you Dictation was produced using [employer] dictation software. please excuse any g rammatical, word or spelling errors. Time with Patient: Greater than 30
[2023-05-01] MEDS: metroNIDAZOLE-NS PMX 500 MG in SALINE 1 100ML.BAG IVPB SCH ×3 (00:40→16:30)
[2023-05-01] MEDS: SODIUM CHLORIDE 0.9% 1,000 ML IV SCH ×3 (00:41→17:45)
[2023-05-01] MEDS: HYDROcodone/APAP 5-325MG 1 EACH TAB PO PRN ×4 (02:12→22:50)
[2023-05-01] MEDS: AMPICILLIN-SULBACTAM 3 GM in SODIUM CHLORIDE 0.9% 100 ML IVPB SCH ×4 (06:01→23:42)
[2023-05-01 06:06] LABS: Glucose,Whole Blood 258 mg/dL (70-110)
[2023-05-01 06:14] LABS: HCT 36.1 % (34.0-46.0); HGB 11.8 gm/dL (11.4-16.0); MCH 29.3 pg (25.0-35.0); MCHC 32.7 g/dL (31.0-37.0); MCV 89.5 fL (80.0-100.0); Mean Platelet Volume 8.7; Platelet Count 186 k/uL (150-450); RBC 4.03 m/uL (3.80-5.40); RDW 14.4 % (11.5-15.5); WBC 5.8 k/uL (3.8-10.6)
[2023-05-01 06:30] LABS: African American GFR (CKD) >90 (>60 ml/min/1.73 sqM); Anion Gap 7 mmol/L; Blood Urea Nitrogen 15 mg/dL (7-17); Calcium 8.2 mg/dL (8.4-10.2); Carbon Dioxide 21 mmol/L (22-30); Chloride 110 mmol/L (98-107); Glucose 266 mg/dL (74-99); Non-African American GFR(CKD) >90 (>60 ml/min/1.73 sqM); Potassium 4.2 mmol/L (3.5-5.1); Sodium 138 mmol/L (137-145)
[2023-05-01] MEDS: INSULIN ASPART (NovoLOG) 100 UNIT/ML VIAL SQ SCH ×4 (06:55→21:41)
[2023-05-01] MEDS: MORPHINE SULFATE 4 MG/ML SYRINGE IV PRN (06:56)
[2023-05-01] MEDS: PANTOPRAZOLE 40 MG/10 ML VIAL IV SCH (08:09)
[2023-05-01] MEDS: ENOXAPARIN 40 MG/0.4 ML SYRINGE SQ SCH (08:14)
--- NOTE | 2023-05-01 10:40 | P.PN ---
Subjective Progress Note Date: 05/01/23 Principal diagnosis: Right emphysematous pyelonephritis Patient is being treated for right emphysematous pyelonephritis. She is currently receiving Unasyn, pending culture results. Although she has experienced right flank discomfort, tooth pain is her primary complaint. Objective - Vital Signs Vital signs: Vital Signs Temp 97.5 F L 05/01/23 02:00 Pulse 66 05/01/23 02:00 Resp 18 05/01/23 02:00 BP 130/79 05/01/23 02:00 Pulse Ox 97 05/01/23 02:00 FiO2 Intake & Output 04/30/23 05/01/23 05/01/23 18:59 06:59 18:59 Intake Total 236 Balance 236 Intake: Oral 236 Other: Voiding Method Toilet Toilet # Voids 4 2 - Constitutional General appearance: Present: average body habitus, no acute distress - Gastrointestinal Gastrointestinal Comment(s): Soft, non-distended. Mild right-sided tenderness, no guarding. - Psychiatric Psychiatric: Present: A&O x's 3 - Labs CBC & Chem 7: 05/01/23 05:41 05/01/23 05:41 Labs: Abnormal Lab Results - Last 24 Hours (Table) 04/30/23 04/30/23 04/30/23 Range/Units 06:05 06:05 11:24 Monocytes # 1.26 H (0.20-1.00) X 10*3/uL Eosinophils # 0.44 H (0.04-0.35) X 10*3/uL Chloride (98-107) mmol/L Carbon Dioxide (22-30) mmol/L Anion Gap 1.70 L (4.00-12.00) mmol/L Creatinine (0.52-1.04) mg/dL BUN/Creatinine Ratio 26.17 H (12.00-20.00) Ratio Glucose 212 H (70-110) mg/dL POC Glucose (mg/dL) 186 H (70-110) mg/dL Calcium 8.6 L (8.7-10.3) mg/dL Total Bilirubin 0.2 L (0.3-1.2) mg/dL AST 36 H (13-35) U/L ALT 54 H (8-44) U/L Albumin 3.2 L (3.8-4.9) d/dL Albumin/Globulin Ratio 1.00 L (1.60-3.17) Ratio 04/30/23 04/30/23 05/01/23 Range/Units 16:20 20:37 05:41 Monocytes # (0.20-1.00) X 10*3/uL Eosinophils # (0.04-0.35) X 10*3/uL Chloride 110 H (98-107) mmol/L Carbon Dioxide 21 L (22-30) mmol/L Anion Gap (4.00-12.00) mmol/L Creatinine 0.41 L (0.52-1.04) mg/dL BUN/Creatinine Ratio (12.00-20.00) Ratio Glucose 266 H (70-110) mg/dL POC Glucose (mg/dL) 258 H 192 H (70-110) mg/dL Calcium 8.2 L (8.7-10.3) mg/dL Total Bilirubin (0.3-1.2) mg/dL AST (13-35) U/L ALT (8-44) U/L Albumin (3.8-4.9) d/dL Albumin/Globulin Ratio (1.60-3.17) Ratio 05/01/23 Range/Units 06:05 Monocytes # (0.20-1.00) X 10*3/uL Eosinophils # (0.04-0.35) X 10*3/uL Chloride (98-107) mmol/L Carbon Dioxide (22-30) mmol/L Anion Gap (4.00-12.00) mmol/L Creatinine (0.52-1.04) mg/dL BUN/Creatinine Ratio (12.00-20.00) Ratio Glucose (70-110) mg/dL POC Glucose (mg/dL) 258 H (70-110) mg/dL Calcium (8.7-10.3) mg/dL Total Bilirubin (0.3-1.2) mg/dL AST (13-35) U/L ALT (8-44) U/L Albumin (3.8-4.9) d/dL Albumin/Globulin Ratio (1.60-3.17) Ratio Microbiology - Last 24 Hours (Table) 04/29/23 16:10 Blood Culture - Preliminary Blood 04/29/23 16:25 Blood Culture - Preliminary Blood 04/29/23 13:01 Urine Culture - Preliminary Urine,Voided Gram Neg Bacilli Assessment and Plan Assessment: Preliminary urine culture shows gram-negative bacilli. CT scan shows bilateral renal calculi. There is evidence of air within the right upper pole collecting system, but no hydronephrosis is seen. (1) Emphysematous pyelonephritis of right kidney Current Visit: Yes Status: Acute Code(s): N12 - TUBULO-INTERSTITIAL NEPHRITIS, NOT SPCF ACUTE OR CHRONIC SNOMED Code(s): 059598965 Plan: - Continue Unasyn - Await culture results - Do not believe surgical intervention is warranted at this time.
[2023-05-01 11:45] LABS: Glucose,Whole Blood 173 mg/dL (70-110)
--- NOTE | 2023-05-01 13:50 | P.PN ---
Subjective Progress Note Date: 05/01/23 Principal diagnosis: Left upper jaw dental infection and emphysematous pyelitis Patient is a 38-year-old female with a past medical history significant for diabetes mellitus patient presented to hospital with right flank pain and left upper jaw dental pain, patient did have a CT of abdominal pelvis with evidence of staghorn calculus with gas in the renal pelvis concerning for emphysematous pyelitis On today's evaluation that is 05/01/2023, the patient remains to be afebrile, the patient is breathing comfortably on room air and denies any shortness of breath, the patient denies any chest pain or cough, patient denies Abdominal pain did have an episode of nausea and vomiting left upper jaw pain has decreased in intensity Objective - Vital Signs Vital signs: Vital Signs Temp 98.1 F 05/01/23 07:34 Pulse 60 05/01/23 07:34 Resp 16 05/01/23 07:34 BP 121/68 05/01/23 07:34 Pulse Ox 99 05/01/23 07:34 FiO2 Intake & Output 04/30/23 05/01/23 05/01/23 18:59 06:59 18:59 Intake Total 236 Balance 236 Intake: Oral 236 Other: Voiding Method Toilet Toilet Toilet # Voids 4 2 - Exam GENERAL DESCRIPTION: Middle-aged female lying in bed in no distress RESPIRATORY SYSTEM: Unlabored breathing , clear to auscultation anteriorly HEART: S1 S2 regular rate and rhythm , ABDOMEN: Soft , no tenderness EXTREMITIES: No edema feet - Labs CBC & Chem 7: 05/01/23 05:41 05/01/23 05:41 Labs: Abnormal Lab Results - Last 24 Hours (Table) 04/30/23 04/30/23 05/01/23 Range/Units 16:20 20:37 05:41 Chloride (98-107) mmol/L Carbon Dioxide (22-30) mmol/L Creatinine (0.52-1.04) mg/dL Glucose (74-99) mg/dL POC Glucose (mg/dL) 258 H 192 H (70-110) mg/dL Hemoglobin A1c 11.8 H (<=6.0) % Calcium (8.4-10.2) mg/dL 05/01/23 05/01/23 05/01/23 Range/Units 05:41 06:05 11:43 Chloride 110 H (98-107) mmol/L Carbon Dioxide 21 L (22-30) mmol/L Creatinine 0.41 L (0.52-1.04) mg/dL Glucose 266 H (74-99) mg/dL POC Glucose (mg/dL) 258 H 173 H (70-110) mg/dL Hemoglobin A1c (<=6.0) % Calcium 8.2 L (8.4-10.2) mg/dL Microbiology - Last 24 Hours (Table) 04/29/23 16:10 Blood Culture - Preliminary Blood 04/29/23 16:25 Blood Culture - Preliminary Blood 04/29/23 13:01 Urine Culture - Preliminary Urine,Voided Gram Neg Bacilli Assessment and Plan (1) Dental abscess Current Visit: Yes Status: Acute Code(s): K04.7 - PERIAPICAL ABSCESS WITHOUT SINUS SNOMED Code(s): 694942005 (2) Emphysematous pyelonephritis of right kidney Current Visit: Yes Status: Acute Code(s): N12 - TUBULO-INTERSTITIAL NEPHRITIS, NOT SPCF ACUTE OR CHRONIC SNOMED Code(s): 407345951 Plan: 1patient presented hospital with right flank pain with evidence of staghorn calculus and concerning for emphysematous pyelitis likely from gram-negative pathogen 2-patient also have left-sided jaw pain and evidence of infected tooth will need to cover for the polymicrobial nemesio usually associated with dental infection 3We will continue the patient on Unasyn 3 g every 6 hours, while waiting for the cultures to finalize Dictation was produced using Xum[employer] dictation software. please excuse any grammatical, word or spelling errors. Time with Patient: Less than 30
[2023-05-01 16:47] LABS: Glucose,Whole Blood 198 mg/dL (70-110)
--- NOTE | 2023-05-01 17:43 | CA ---
Transthoracic Echo Report Name: Trinity Chiu Age: 38 Gender: F : 1985 Exam Date: 05/01/2023 15:21 Exam Location: [place] [facility] Ht (in): 63 Wt (lb): 200 Ordering Physician: Caio Darnell MD Attending/Referring Phys: Piping Manager Lakeisha ARREOLA Procedure CPT: Indications: Valvular heart disease Cardiac Hx: Technical Quality: Fair Contrast 1: Total Dose (mL): Contrast 2: Total Dose (mL): MEASUREMENTS (Male / Female) Normal Values 2D ECHO LV Diastolic Diameter PLAX 5.2 cm 4.2 - 5.9 / 3.9 - 5.3 cm LV Systolic Diameter PLAX 4.7 cm IVS Diastolic Thickness 1.0 cm 0.6 - 1.0 / 0.6 - 0.9 cm LVPW Diastolic Thickness 1.0 cm 0.6 - 1.0 / 0.6 - 0.9 cm LV Relative Wall Thickness 0.4 LVOT Diameter 2.0 cm LV Diastolic Volume MOD BP 107.0 cm??? 67 - 155 / 56 - 104 cm??? LV Systolic Volume MOD BP 67.0 cm??? 22 - 58 / 19 - 49 cm??? LV Ejection Fraction MOD BP 37.4 % >= 55 % LV Cardiac Index MOD BP 1172.9 cm???/min???m??? LV Diastolic Volume MOD 4C 99.1 cm??? LV Systolic Volume MOD 4C 52.6 cm??? LV Ejection Fraction MOD 4C 46.9 % LV Cardiac Index MOD 4C 1361.3 cm???/min???m??? LV Diastolic Length 4C 8.2 cm LV Systolic Length 4C 6.2 cm LV Diastolic Volume MOD 2C 115.6 cm??? LV Systolic Volume MOD 2C 67.5 cm??? LV Ejection Fraction MOD 2C 41.6 % LV Cardiac Index MOD 2C 1406.1 cm???/min???m??? LV Diastolic Length 2C 8.3 cm LV Systolic Length 2C 7.8 cm LA Volume 50.0 cm??? 18 - 58 / 22 - 52 cm??? LA Volume Index 24.4 cm???/m??? 16 - 28 cm???/m??? Ascending Aorta Diameter 2.9 cm M-MODE Aortic Root Diameter MM 2.4 cm LA Systolic Diameter MM 3.4 cm LA Ao Ratio MM 1.4 AV Cusp Separation MM 2.1 cm DOPPLER AV Peak Velocity 119.5 cm/s AV Peak Gradient 5.7 mmHg AV Mean Velocity 90.5 cm/s AV Mean Gradient 3.5 mmHg AV Velocity Time Integral 26.7 cm LVOT Peak Velocity 102.7 cm/s LVOT Peak Gradient 4.2 mmHg LVOT Velocity Time Integral 21.3 cm LVOT Stroke Volume 69.3 cm??? LVOT Stroke Volume Index 35.8 ml/m??? LVOT Cardiac Index 2028.2 cm???/min???m??? AV Area Cont Eq vti 2.6 cm??? AV Area Cont Eq pk 2.8 cm??? MR Peak Velocity 461.9 cm/s MR Peak Gradient 85.4 mmHg Mitral E Point Velocity 69.1 cm/s Mitral A Point Velocity 65.6 cm/s Mitral E to A Ratio 1.1 MV Deceleration Time 121.9 ms LV E' Lateral Velocity 6.1 cm/s Mitral E to LV E' Lateral Ratio 11.3 LV E' Septal Velocity 5.6 cm/s Mitral E to LV E' Septal Ratio 12.4 TR Peak Velocity 313.7 cm/s TR Peak Gradient 39.4 mmHg Right Atrial Pressure 15.0 mmHg Pulmonary Artery Systolic Pressu 54.4 mmHg Right Ventricular Systolic Press 54.4 mmHg FINDINGS Left Ventricle Mildly increased left ventricular wall thickness. Mildly increased left ventricular diastolic volume. Moderately increased left ventricular systolic volume. Moderately decreased left ventricular ejection fraction. Left ventricular ejection fraction is estimated at 35-40%. Global hypokinesis Right Ventricle Moderate right ventricular dilatation. Severe pulmonary hypertension. Right Atrium Normal right atrial size. Left Atrium Normal left atrial size. Mitral Valve Mitral valve thickened. Moderate mitral regurgitation. Aortic Valve Trileaflet aortic valve. Trace aortic regurgitation. Tricuspid Valve Prosthetic tricuspid valve. Moderate tricuspid regurgitation. Pulmonic Valve Pulmonic valve not well visualized. Trace pulmonic regurgitation. Pericardium No pericardial effusion. Aorta Normal size aortic root and proximal ascending aorta. CONCLUSIONS Left ventricular ejection fraction 35-40% RVSP 54 Moderate mitral regurgitation Moderate tricuspid regurgitation No pericardial effusion Previewed by: Dr. Tucker Gutierrez DO (Electronically Signed) Final Date: 01 May 2023 17:42
--- NOTE | 2023-05-01 19:54 | P.PN ---
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 In the emergency room she underwent an extensive evaluation. Her initial vital signs were remarkable for a pulse of 100 but otherwise within normal limits. Initial laboratory analysis was remarkable for white blood cell count of 12.4, AST 40, ALT 67 and glucose of 323. CT abdomen and pelvis showed large left renal calculi with no evidence of obstructive uropathy, right kidney with emphysematous pyelitis and staghorn calculi. Gallbladder ultrasound demonstrated cholelithiasis and mild right hydronephrosis with heterogeneous liver. In the ER she was started on IV antibiotics and IV fluids. Arrangements were made for admission. She was seen by urology who recommended continued IV antibiotics and outpatient follow-up for uteroscopy versus shock-wave lithotripsy. Patient seen and examined at bedside. She is feeling slightly anxious today. Her pain is well-controlled. Her face is still not started draining. Vital signs reviewed General: nontoxic, no distress, appears at stated age Mouth: dental abscess left anterior mouth Cardiovascular: S1S2 reg with diastolic murmur, positive posterior tibial pulse bilateral, Lungs: Decreased breath sounds bilateral, no rhonchi, no rales , no accessory muscle use Abdominal: soft, nontender to palpation, no guarding, no appreciable organomegaly Ext: no gross muscle atrophy, no edema b/l lower extremities, no contractures Neuro: CN II-XI grossly intact, no focal neuro deficits Psych: Alert, oriented, appropriate affect Assessment/Plan: Gram neg bacilli Emphysematous pyelitis, staghorn calculus right, nephrolithiasis left Dental abscess Sepsis, resolved - Unasyn 3 gram q 6 hours IVPB D #2. Flagyl 500 mg q 8 hours IV D#2 -Urology note reviewed: Outpatient surgical evaluation -Infectious disease note reviewed: Continue with Unasyn - D/C normal saline - await urine culture - Urology recs appreciated: outpatient follow-up for ureteroscopy and cutaneous nephro lithotripsy - Sialagogues as needed, patient refused drainage of denal abscess in the ED - Blood cultures negative to date - toradol 15 mg IVP q 6 hours prn pain and norco 5/325 mg oral q 6 hours prn pain - morphine 4 mg q 4 hours prn breakthrough pain, monitor for signs of sedation DM II - Levemir to 18 units at night - SSI - follow BS - A1C 11.9- due to hx of opiate abuse patient does not want insulin on discharge was on metformin and glipizide in the past and states was well controlled Hx of tricuspid valve replacement PPM Imaging: As per HPI Data Review: Labs reviewed from today are CBC and basic metabolic profile with A1c which are remarkable for carbon dioxide 21, blood sugar 198, hemoglobin A1c 11.8 Urine Cx Grma neg bacilli Blood cultures negative to date DVT prophylaxis: Lovenox Anticipated discharge date: Pending Clinical Course Anticipated discharge place: Pending Clinical Course This dictation was prepared using K[employer] voice recognition software. Though every attempt is made to correct errors during dictation some may still exist. Objective - Vital Signs Vital signs: Vital Signs Temp 97.6 F 05/01/23 14:34 Pulse 60 05/01/23 14:34 Resp 16 05/01/23 14:34 BP 149/80 05/01/23 14:34 Pulse Ox 98 05/01/23 14:34 FiO2 Intake & Output 05/01/23 05/01/23 05/02/23 06:59 18:59 06:59 Intake Total 1560 Balance 1560 Intake: IV 1560 Sodium Chloride 0.9% 1, 1560 000 ml @ 130 mls/hr IV . Q7H42M [facility] Rx#:[id number] Other: Voiding Method Toilet Toilet # Voids 2 - Labs CBC & Chem 7: 05/01/23 05:41 05/01/23 05:41 Labs: Abnormal Lab Results - Last 24 Hours (Table) 04/30/23 05/01/23 05/01/23 Range/Units 20:37 05:41 05:41 Chloride 110 H (98-107) mmol/L Carbon Dioxide 21 L (22-30) mmol/L Creatinine 0.41 L (0.52-1.04) mg/dL Glucose 266 H (74-99) mg/dL POC Glucose (mg/dL) 192 H (70-110) mg/dL Hemoglobin A1c 11.8 H (<=6.0) % Calcium 8.2 L (8.4-10.2) mg/dL 05/01/23 05/01/23 05/01/23 Range/Units 06:05 11:43 16:44 Chloride (98-107) mmol/L Carbon Dioxide (22-30) mmol/L Creatinine (0.52-1.04) mg/dL Glucose (74-99) mg/dL POC Glucose (mg/dL) 258 H 173 H 198 H (70-110) mg/dL Hemoglobin A1c (<=6.0) % Calcium (8.4-10.2) mg/dL Microbiology - Last 24 Hours (Table) 04/29/23 16:10 Blood Culture - Preliminary Blood 04/29/23 16:25 Blood Culture - Preliminary Blood 04/29/23 13:01 Urine Culture - Preliminary Urine,Voided Gram Neg Bacilli
[2023-05-01 20:58] LABS: Glucose,Whole Blood 125 mg/dL (70-110)
[2023-05-01] MEDS: INSULIN DETEMIR (LEVEMIR) 100 UNIT/ML SYR SQ SCH (21:46)
[2023-05-02] MEDS: metroNIDAZOLE-NS PMX 500 MG in SALINE 1 100ML.BAG IVPB SCH ×3 (00:29→10:20)
[2023-05-02 06:01] LABS: Glucose,Whole Blood 98 mg/dL (70-110)
[2023-05-02] MEDS: INSULIN ASPART (NovoLOG) 100 UNIT/ML VIAL SQ SCH ×2 (06:02→12:19)
[2023-05-02] MEDS: AMPICILLIN-SULBACTAM 3 GM in SODIUM CHLORIDE 0.9% 100 ML IVPB SCH ×2 (06:11→12:18)
[2023-05-02] MEDS: HYDROcodone/APAP 5-325MG 1 EACH TAB PO PRN ×2 (06:11→12:28)
[2023-05-02] MEDS: PANTOPRAZOLE 40 MG/10 ML VIAL IV SCH ×2 (08:20→10:14)
[2023-05-02] MEDS ORDERED: ONDANSETRON ODT 4 MG TAB PO STA (08:35)
[2023-05-02] MEDS: ENOXAPARIN 40 MG/0.4 ML SYRINGE SQ SCH (08:44)
[2023-05-02 11:23] LABS: Glucose,Whole Blood 146 mg/dL (70-110)
--- NOTE | 2023-05-02 11:51 | P.PN ---
Subjective Progress Note Date: 05/02/23 Principal diagnosis: Right emphysematous pyelonephritis Patient is being treated for right emphysematous pyelonephritis. She continues to report right flank discomfort. She has multiple other complaints, including a headache, nausea, and vomiting. She denies dysuria and hematuria. Objective - Vital Signs Vital signs: Vital Signs Temp 97.9 F 05/02/23 02:00 Pulse 68 05/02/23 02:00 Resp 16 05/02/23 02:00 BP 164/91 05/02/23 02:00 Pulse Ox 96 05/02/23 02:00 FiO2 Intake & Output 05/01/23 05/02/23 05/02/23 18:59 06:59 18:59 Intake Total 1560 Balance 1560 Intake: IV 1560 Sodium Chloride 0.9% 1, 1560 000 ml @ 130 mls/hr IV . Q7H42M [facility] Rx#:[id number] Other: Voiding Method Toilet Toilet # Voids 1 - Constitutional General appearance: Present: average body habitus, mild distress - Gastrointestinal Gastrointestinal Comment(s): Soft, non-distended. Right-sided tenderness, no guarding or rebound. - Psychiatric Psychiatric: Present: A&O x's 3 - Labs CBC & Chem 7: 05/01/23 05:41 05/01/23 05:41 Labs: Abnormal Lab Results - Last 24 Hours (Table) 05/01/23 05/01/23 05/01/23 Range/Units 05:41 11:43 16:44 POC Glucose (mg/dL) 173 H 198 H (70-110) mg/dL Hemoglobin A1c 11.8 H (<=6.0) % 05/01/23 Range/Units 20:57 POC Glucose (mg/dL) 125 H (70-110) mg/dL Hemoglobin A1c (<=6.0) % Microbiology - Last 24 Hours (Table) 04/29/23 13:01 Urine Culture - Final Urine,Voided Escherichia coli 04/29/23 16:10 Blood Culture - Preliminary Blood 04/29/23 16:25 Blood Culture - Preliminary Blood Assessment and Plan Assessment: Urine culture shows greater than 100,[address] scan shows bilateral renal calculi. There is evidence of air within the right upper pole collecting system, but no hydronephrosis is seen. (1) Emphysematous pyelonephritis of right kidney Current Visit: Yes Status: Acute Code(s): N12 - TUBULO-INTERSTITIAL NEPHRITIS, NOT SPCF ACUTE OR CHRONIC SNOMED Code(s): 660615481 Plan: - Do not believe surgical intervention is warranted at this time - Patient is to be discharged home on oral antibiotics for 4 weeks - Follow up with Dr. Purcell in 1 month - Will need repeat imaging
[2023-05-02 14:53] VITALS: BP 196/138; PULSE 61; RESP 17; TEMP 98.5
--- NOTE | 2023-05-02 15:59 | P.PN ---
Subjective Progress Note Date: 05/02/23 Principal diagnosis: Left upper jaw dental infection and emphysematous pyelitis Patient is a 38-year-old female with a past medical history significant for diabetes mellitus patient presented to hospital with right flank pain and left upper jaw dental pain, patient did have a CT of abdominal pelvis with evidence of staghorn calculus with gas in the renal pelvis concerning for emphysematous pyelitis On today's evaluation that is05/02/2023, the patient denies any fever or chills, the patient is breathing comfortably on room air and no need for supplemental oxygen, the patient denies any chest pain or cough, patient denies nausea/vomiting or diarrhea and no abdominal pain, the patient pain left upper jaw pain has decreased in intensity. Patient white count of 5.8, creatinine 0.41 as of yesterday urine culture grew E. coli that is sensitive pathogen Objective - Vital Signs Vital signs: Vital Signs Temp 97.6 F 05/02/23 07:24 Pulse 64 05/02/23 08:18 Resp 15 05/02/23 07:24 BP 157/86 05/02/23 08:18 Pulse Ox 96 05/02/23 08:18 FiO2 Intake & Output 05/01/23 05/02/23 05/02/23 18:59 06:59 18:59 Intake Total 1560 Balance 1560 Intake: IV 1560 Sodium Chloride 0.9% 1, 1560 000 ml @ 130 mls/hr IV . Q7H42M [facility] Rx#:[id number] Other: Voiding Method Toilet Toilet Toilet # Voids 1 - Exam GENERAL DESCRIPTION: Middle-aged female lying in bed in no distress RESPIRATORY SYSTEM: Unlabored breathing , clear to auscultation anteriorly HEART: S1 S2 regular rate and rhythm , ABDOMEN: Soft , no tenderness EXTREMITIES: No edema feet - Labs CBC & Chem 7: 05/01/23 05:41 05/01/23 05:41 Labs: Abnormal Lab Results - Last 24 Hours (Table) 05/01/23 05/01/23 05/02/23 Range/Units 16:44 20:57 11:21 POC Glucose (mg/dL) 198 H 125 H 146 H (70-110) mg/dL Microbiology - Last 24 Hours (Table) 04/29/23 13:01 Urine Culture - Final Urine,Voided Escherichia coli 04/29/23 16:10 Blood Culture - Preliminary Blood 04/29/23 16:25 Blood Culture - Preliminary Blood Assessment and Plan (1) Dental abscess Current Visit: Yes Status: Acute Code(s): K04.7 - PERIAPICAL ABSCESS WITHOUT SINUS SNOMED Code(s): 263461327 (2) Emphysematous pyelonephritis of right kidney Current Visit: Yes Status: Acute Code(s): N12 - TUBULO-INTERSTITIAL NEPHRITIS, NOT SPCF ACUTE OR CHRONIC SNOMED Code(s): 527658580 Plan: 1patient presented hospital with right flank pain with evidence of staghorn calculus and concerning for emphysematous pyelitis likely from gram-negative pathogen 2-patient also have left-sided jaw pain and evidence of infected tooth will need to cover for the polymicrobial nemesio usually associated with dental infection 3patient #clinical improvement and will continue the patient on Unasyn 3 g every 6 hours, with the plan to finish therapy with oral Augmentin 2 week Dictation was produced using [employer] dictation software. please excuse any grammatical, word or spelling errors. Time with Patient: Less than 30
--- NOTE | 2023-05-02 18:38 | P.DS ---
Providers Date of admission: 04/29/23 19:07 Expected date of discharge: 05/02/23 Attending physician: Rosa Escobar MD Consults: 04/29/23 19:07 Consult Physician Routine Consulting Provider: Tyson Purcell Consult Reason/Comments: pyelo Do you want consulting provider notified?: Yes 04/30/23 08:44 Consult Physician Routine Consulting Provider: Annette Dsouza Consult Reason/Comments: emphysematous pyelitis Do you want consulting provider notified?: Yes Primary care physician: Stated None Hospital Course: Discharge Diagnosis: E. 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 In the emergency room she underwent an extensive evaluation. Her initial vital signs were remarkable for a pulse of 100 but otherwise within normal limits. Initial laboratory analysis was remarkable for white blood cell count of 12.4, AST 40, ALT 67 and glucose of 323. CT abdomen and pelvis showed large left renal calculi with no evidence of obstructive uropathy, right kidney with emphysematous pyelitis and staghorn calculi. Gallbladder ultrasound demonstrated cholelithiasis and mild right hydronephrosis with heterogeneous liver. In the ER she was started on IV antibiotics and IV fluids. Arrangements were made for admission. She was seen by urology who recommended continued IV antibiotics and outpatient follow-up for uteroscopy versus shock-wave lithotripsy. She continued to progress well. Her white blood cell count normalized. Her sugars became more controlled. Urine culture came back with E. coli. Patient was asking to be discharged home as her father had . She had slightly elevated blood pressure as well as a headache that was felt to be situational due to anxiety. She felt that she could manage at home. Follow-up: Case discussed with Dr. Arora. Patient does not currently have any insurance to allow for outpatient surgery. She has been seen by [facility] and should have Medicaid soon per patient. Given the circumstances he is recommending a 28 day course of antibiotics given the size of her stones. Due to no insurance the most cost effective and susceptible antibiotic is bactrim she will take 1 tablet twice daily for the next 28 days. She was given a goodRx coupon. She has requested not to be discharged on insulin secondary to the cost as well as her prior history of IV drug use. She states she has been well- tolerated on metformin and glipizide in the past. These medications were represcribed and should be a total of $7. 16 at [facility]. She was also given a prescription for [place] 11/04/24 #12 tablets. I asked her to stop this as soon as possible and continue to use [id number] Motrin 600 mg every 6 hours as needed for pain. Due to the sudden loss of her father she plans on returning to [place]. It was stressed to her the importance of follow-up with her urologist either here or in [place] she is likely to get recurrent infections if she does not get her stones addressed. of note patient has been on coumadin in the past she did not want to be restarted on this medication due to here lack of follow and inability to get INR checks Patient seen and examined at bedside. She does have a headache but she thinks it is due to stress in her IV being reinserted. She had some vomiting this morning but it is since resolved and she is able to tolerate an oral diet. She would like to be discharged home today as long as her headache is manageable and she does have a history of headaches. Vital signs reviewed and stable. General: nontoxic, no distress, appears at stated age Cardiovascular: S1S2 reg, no murmur, positive posterior tibial pulse bilateral, Lungs: CTA bilateral, no rhonchi, no rales , no accessory muscle use Abdominal: soft, nontender to palpation, no guarding, no appreciable organomegaly Ext: no gross muscle atrophy, no edema b/l lower extremities, no contractures Neuro: CN II-XI grossly intact, no focal neuro deficits Psych: Alert, oriented, appropriate affect A total of 37 minutes of time were spent preparing this complex discharge summary. Patient was discharged on 05/02/23. This dictation was prepared using [employer] voice recognition software. Though every attempt is made to correct errors during dictation some may still exist. Patient Condition at Discharge: Fair Plan - Discharge Summary Discharge Rx Participant: Yes New Discharge Prescriptions: New HYDROcodone/APAP 5-325MG [[place] 5-325] 1 each PO Q6HR PRN #12 tab PRN Reason: Pain glipiZIDE 5 mg PO DAILY #30 tablet metFORMIN HCL 1,000 mg PO BID #60 tablet Sulfamethox-Tmp 800-160Mg [Bactrim DS 800-160 mg] 1 tab PO Q12HR #56 tab Discharge Medication List HYDROcodone/APAP 5-325MG [[place] 5-325] 1 each PO Q6HR PRN #12 tab 05/02/23 [Rx] Sulfamethox-Tmp 800-160Mg [Bactrim DS 800-160 mg] 1 tab PO Q12HR #56 tab 05/02/23 [Rx] glipiZIDE 5 mg PO DAILY #30 tablet 05/02/23 [Rx] metFORMIN HCL 1,000 mg PO BID #60 tablet 05/02/23 [Rx] Follow up Appointment(s)/Referral(s): None,Stated [Primary Care Provider] - 1-2 days [facility] [NON-STAFF] - 1 Week (The see uninsured a few days a week ) Tyson Purcell MD [STAFF PHYSICIAN] - 4 Weeks Patient Instructions/Handouts: Urinary Tract Infection in Women (DC), Dental Abscess (GEN) Activity/Diet/Wound Care/Special Instructions: Activity: tolerated Diet: Consistent Carb Special Instructions: Please ensure follow-up with urology your large kidney stone could become infected again leading to sepsis which can be fatal. Take medications as prescribed. You can take Motrin 600 mg over the counter 3 times daily as need for pain Discharge/Stand Alone Forms: Work/Release Restrictions Form Discharge Disposition: HOME SELF-CARE
== END 2023-05-02 16:27 | disposition home or self-care (01) | DRG 872 ==
LOC: EC 12:27 → 4SSUR 19:07
PROVIDERS: ADMIT Internal Medicine; ATTEND Internal Medicine
DX: A41.51 Sepsis due to Escherichia coli [E. coli] (principal); N13.6 Pyonephrosis; E11.65 Type 2 diabetes mellitus with hyperglycemia; F11.11 Opioid abuse, in remission; F41.9 Anxiety disorder, unspecified; K02.9 Dental caries, unspecified; K04.7 Periapical abscess without sinus; K80.20 Calculus of gallbladder without cholecystitis without obstruction; T45.516A Underdosing of anticoagulants, initial encounter; F17.200 Nicotine dependence, unspecified, uncomplicated; R79.89 Other specified abnormal findings of blood chemistry; Z91.128 Patient's intentional underdosing of medication regimen for other reason; Z87.440 Personal history of urinary (tract) infections; Z87.442 Personal history of urinary calculi; Z95.2 Presence of prosthetic heart valve
CPT/HCPCS: 36415; 74150; 76705; 80048; 80053; 81001; 83036; 83735; 84100; 84702; 85025; 85027; 85610; 87040; 87077; 87086; 87186; 93306; 96361; 96365; 96366; 96367; 96375; 96376; 99285

== ENCOUNTER → 2024-01-10 | Outpatient (CLI) | payer OTHER ==
--- NOTE | 2024-01-10 16:40 | CT ---
EXAMINATION TYPE: CT CervThorLumbar spine wo con DATE OF EXAM: 01/10/2024 COMPARISON: None HISTORY: Neck and back pain x [address] DLP: 1507 mGycm Automated exposure control for dose reduction was used. FINDINGS: The cervical, thoracic and lumbar vertebral segments are normal in height and alignment and there is no fracture or subluxation. There is mild disc space narrowing at C4-5, C5-6, C6-7, C7/T1 and T1/T2 levels and mild degenerative disease. There is mild disc space narrowing and spondylosis throughout the mid and lower thoracic spi ne indicating mild degenerative disease. Lumbar disc spaces are well preserved. There is no bony neural foraminal encroachment throughout the thoracic or lumbar spine. Paraspinal so ft tissues are unremarkable. IMPRESSION: 1. NO LUMBAR THORACIC OR CERVICAL SPINE FRACTURE OR SUBLUXATION. 2. MILD DEGENERATIVE DISC DISEASE IN THE MID AND CERVICAL SPINE AND THORACIC SPINE.
== END | disposition home or self-care (01) ==
LOC: RADCTMAIN 14:45
PROVIDERS: ATTEND Family Medicine
DX: M54.16 Radiculopathy, lumbar region (principal); M54.12 Radiculopathy, cervical region; M54.14 Radiculopathy, thoracic region; M50.30 Other cervical disc degeneration, unspecified cervical region; M51.34 Other intervertebral disc degeneration, thoracic region; Z86.61 Personal history of infections of the central nervous system
CPT/HCPCS: 72125; 72128; 72131